=== PATIENT | male | born 1995 | race Two or more races ===

== ENCOUNTER 2019-06-15 13:18 | Inpatient (IN) | payer MEDICAID ==
[~2019-06-15] VITALS: Ht 170.2 cm; Wt 106.1 kg
[~2019-06-15 13:18] MED LIST: ARIP2 PO; LORA-1000 PO; SERT50TA12 PO
[2019-06-16 14:32] VITALS: BP 111/73
[2019-06-16] MEDS ORDERED: HALOPERIDOL 5 MG TABLET PO PRN (14:45)
[2019-06-16 16:11] VITALS: BP 130/69
[2019-06-16] MEDS: LORazepam 2 MG TABLET PO PRN (17:39)
[2019-06-16] MEDS ORDERED: DOCUSATE SODIUM 100 MG CAPSULE PO PRN (18:00)
[2019-06-16] MEDS ORDERED: ONDANSETRON HCL 4 MG TABLET PO PRN (18:00)
[2019-06-16] MEDS ORDERED: MAGNESIUM HYDROXIDE SUSPENSION 30 ML UDCUP PO PRN (18:00)
[2019-06-16] MEDS ORDERED: NICOTINE 14 MG/24 HOUR PATCH TD PRN (18:00)
[2019-06-16] MEDS ORDERED: MAG HYDROX/AL HYDROX/SIMETH ES 30 ML SUSPENSION UDCUP PO PRN (18:00)
[2019-06-16] MEDS ORDERED: ALBUTEROL SULFATE HFA 90 MCG/PUFF 8 GM INHALER IH PRN (18:00)
[2019-06-16] MEDS ORDERED: CloNIDine HCL 0.1 MG TABLET PO PRN (18:00)
[2019-06-16] MEDS ORDERED: PETROLATUM,WHITE 28 GM JELLY TP PRN (18:00)
[2019-06-16] MEDS ORDERED: IBUPROFEN 400 MG TABLET PO PRN (18:00)
[2019-06-16] MEDS ORDERED: LOPERAMIDE HCL 2 MG CAPSULE PO PRN (18:00)
[2019-06-16] MEDS ORDERED: GuaiFENesin/D-METHORPHAN [SUGAR-FREE] 200-20MG/10 ML SYRUP UDCUP PO PRN (18:00)
[2019-06-16] MEDS ORDERED: ACETAMINOPHEN 325 MG TABLET PO PRN (18:00)
[2019-06-16] MEDS: ZOLPIDEM TARTRATE 10 MG TABLET PO PRN (21:10)
[2019-06-17 00:44] VITALS: BP 121/68
[2019-06-17 07:53] LABS: APPEARANCE,URINE TURBID (CLEAR); BILIRUBIN,URINE NEGATIVE (NEGATIVE); GLUCOSE, URINE (UA) NEGATIVE (NEGATIVE); KETONES,URINE NEGATIVE (NEGATIVE); LEUKOCYTE ESTERASE ,URINE NEGATIVE (NEGATIVE); NITRATE,URINE NEGATIVE (NEGATIVE); OCCULT BLOOD,URINE NEGATIVE (NEGATIVE); PH,URINE 7.5 (5.0-8.0); PROTEIN,URINE NEGATIVE (NEGATIVE); UROBILINOGEN,URINE 0.2 mg/dL (<=1.0)
[2019-06-17 07:55] LABS: BASOPHILS % (AUTO) 0.5 % (0.0-2.0); HEMATOCRIT 43.6 % (41-53); HEMOGLOBIN 14.8 g/dL (13.5-17.5); LYMPHOCYTES # (AUTO) 2.8 K/uL (1.0-4.8); LYMPHOCYTES % (AUTO) 28.9 % (22.0-44.0); MEAN CORPUSCULAR HEMOGLOBIN 28.6 pg (26.0-34.0); MEAN CORPUSCULAR HGB CONC 33.9 G/dL (31.0-37.0); MEAN CORPUSCULAR VOLUME 84 fL (80-100); MONOCYTES # (AUTO) 0.7 K/uL (0.1-1.0); MONOCYTES % (AUTO) 6.8 % (2.0-9.0); NEUTROPHILS # (AUTO) 6.1 K/uL (1.8-7.7); NEUTROPHILS % (AUTO) 62.8 % (40.0-70.0); PLATELET COUNT (AUTO) 287 K/uL (150-450); RED BLOOD CELL COUNT(AUTO) 5.17 MIL/uL (4.50-5.90); RED CELL DISTRIBUTION WIDTH 13.9 % (11.5-14.5)
[2019-06-17 07:59] LABS: AMPHET/METH SCREEN,URINE NEGATIVE (NEGATIVE); BARBITURATE SCREEN, URINE NEGATIVE (NEGATIVE); BENZODIAZEPINES SCREEN,URINE NEGATIVE (NEGATIVE); CANNABINOID SCREEN,URINE NEGATIVE (NEGATIVE); COCAINE SCREEN,URINE NEGATIVE (NEGATIVE); METHADONE SCREEN, URINE NEGATIVE (NEGATIVE); OPIATE SCREEN,URINE NEGATIVE (NEGATIVE)
[2019-06-17 07:59] LABS: HEMOGLOBIN A1C 5.4 % (4.5-6.2)
[2019-06-17 08:00] VITALS: BP 136/84
[2019-06-17 08:00] LABS: PHENCYCLIDINE SCREEN,URINE NEGATIVE (NEGATIVE)
[2019-06-17 08:04] VITALS: BP 140/74
[2019-06-17 08:18] LABS: ALANINE AMINOTRANSFERASE 110 U/L (12-78); ALBUMIN 3.8 g/dL (3.4-5.0); ALKALINE PHOSPHATASE 86 U/L (46-116); ANION GAP 9 mmol/L (8-16); ASPARTATE AMINOTRANSFERASE 34 U/L (15-37); BILIRUBIN,TOTAL 0.4 mg/dL (0.1-1.0); CALCIUM, TOTAL 8.6 mg/dL (8.8-10.5); CARBON DIOXIDE 23 mmol/L (22-29); CHLORIDE 108 mmol/L (98-107); CHOLESTEROL 175 mg/dL (131-200); CREATININE 0.83 mg/dL (0.60-1.30); GLOMERULAR FILTR. RATE CALC > 60 mL/min (>60); GLUCOSE,RANDOM 88 mg/dL (70-110); HDL CHOLESTEROL 35 mg/dL (40-60); LDL CHOL (CALC.) 119 mg/dL (0-130); POTASSIUM 3.7 mmol/L (3.5-5.1); SODIUM SERUM 140 mmol/L (136-145); THYROID STIMULATING HORMONE 2.01 uIU/mL (0.36-3.74); TOTAL PROTEIN, SERUM 7.7 g/dL (6.4-8.2); TRIGLYCERIDES 107 mg/dL (15-150)
[2019-06-17 08:29] LABS: UREA NITROGEN, BLOOD 10 mg/dL (7-18)
[2019-06-17] MEDS ORDERED: ACETAMINOPHEN 325 MG TABLET PO PRN (08:45)
[2019-06-17] MEDS ORDERED: DOCUSATE SODIUM 100 MG CAPSULE PO PRN (08:45)
[2019-06-17] MEDS ORDERED: ALBUTEROL SULFATE HFA 90 MCG/PUFF 8 GM INHALER IH PRN (08:45)
[2019-06-17] MEDS ORDERED: NICOTINE 14 MG/24 HOUR PATCH TD PRN (08:45)
[2019-06-17] MEDS ORDERED: MAG HYDROX/AL HYDROX/SIMETH ES 30 ML SUSPENSION UDCUP PO PRN (08:45)
[2019-06-17] MEDS ORDERED: GuaiFENesin/D-METHORPHAN [SUGAR-FREE] 200-20MG/10 ML SYRUP UDCUP PO PRN (08:45)
[2019-06-17] MEDS ORDERED: IBUPROFEN 400 MG TABLET PO PRN (08:45)
[2019-06-17] MEDS ORDERED: ONDANSETRON HCL 4 MG TABLET PO PRN (08:45)
[2019-06-17] MEDS ORDERED: CloNIDine HCL 0.1 MG TABLET PO PRN (08:45)
[2019-06-17] MEDS ORDERED: LOPERAMIDE HCL 2 MG CAPSULE PO PRN (08:45)
[2019-06-17] MEDS ORDERED: MAGNESIUM HYDROXIDE SUSPENSION 30 ML UDCUP PO PRN (08:45)
[2019-06-17] MEDS ORDERED: PETROLATUM,WHITE 28 GM JELLY TP PRN (08:45)
[2019-06-17 09:09] LABS: BACTERIA,URINE None Seen /HPF (None Seen); RBC,URINE None Seen /HPF (0-2); SQUAMOUS EPITHELIAL CELL,UR Rare /LPF (None Seen); WBC,URINE None Seen /HPF (0-5)
[2019-06-17 09:10] LABS: AMORPHOUS SEDIMENT,UR Many /LPF (None Seen)
[2019-06-17] MEDS: ARIPiprazole 5 MG TABLET PO SCH (12:21)
[2019-06-17] MEDS: SERTRALINE HCL 50 MG TABLET PO SCH (12:21)
[2019-06-17 16:04] VITALS: BP 121/78
[2019-06-17] MEDS: ZOLPIDEM TARTRATE 10 MG TABLET PO PRN (20:44)
[2019-06-18 00:04] VITALS: BP 133/76
[2019-06-18] MEDS: SERTRALINE HCL 50 MG TABLET PO SCH (08:20)
[2019-06-18 08:23] VITALS: BP 140/78
[2019-06-18] MEDS: ARIPiprazole 5 MG TABLET PO SCH (10:01)
[2019-06-18 16:10] VITALS: BP 135/88
[2019-06-18] MEDS: ZOLPIDEM TARTRATE 10 MG TABLET PO PRN (20:45)
[2019-06-19 05:53] VITALS: BP 126/82
[2019-06-19 08:08] VITALS: BP 139/82
[2019-06-19] MEDS: PALIPERIDONE 3 MG ER TABLET PO SCH (08:15)
[2019-06-19] MEDS: SERTRALINE HCL 50 MG TABLET PO SCH (08:16)
[2019-06-19 16:37] VITALS: BP 128/76
[2019-06-20 00:33] VITALS: BP 132/84
[2019-06-20] MEDS: SERTRALINE HCL 50 MG TABLET PO SCH (08:09)
[2019-06-20] MEDS: PALIPERIDONE 3 MG ER TABLET PO SCH (08:09)
[2019-06-20 08:16] VITALS: BP 141/70
[2019-06-20 16:00] VITALS: BP 117/75
[2019-06-20] MEDS: ZOLPIDEM TARTRATE 10 MG TABLET PO PRN (21:22)
[2019-06-21 02:10] VITALS: BP 140/86
[2019-06-21 08:15] VITALS: BP 114/63
[2019-06-21] MEDS: SERTRALINE HCL 50 MG TABLET PO SCH (08:20)
[2019-06-21] MEDS: PALIPERIDONE 3 MG ER TABLET PO SCH (08:20)
[2019-06-21 16:02] VITALS: BP 131/71
[2019-06-22 00:53] VITALS: BP 139/80
[2019-06-22 05:21] VITALS: BP 129/76
[2019-06-22] MEDS: LORazepam 2 MG TABLET PO PRN (05:25)
[2019-06-22] MEDS: PALIPERIDONE 3 MG ER TABLET PO SCH (08:04)
[2019-06-22] MEDS: SERTRALINE HCL 50 MG TABLET PO SCH (08:04)
[2019-06-22 08:08] VITALS: BP 130/76
[2019-06-22] MEDS ORDERED: SERT50TA12 PO (09:01)
[2019-06-22] MEDS ORDERED: PALI3 PO (09:01)
== END 2019-06-22 12:40 | disposition home or self-care (01) | DRG 750 ==
LOC: B2S 06-16 15:30
PROVIDERS: ADMIT Psychiatry & Neurology Psychiatry; ATTEND Psychiatry & Neurology Psychiatry
DX: F20.9 Schizophrenia, unspecified (principal); E83.51 Hypocalcemia; K59.00 Constipation, unspecified; E66.9 Obesity, unspecified; Z68.36 Body mass index [BMI] 36.0-36.9, adult; R74.0 Nonspecific elevation of levels of transaminase and lactic acid dehydrogenase [LDH]; F32.9 Major depressive disorder, single episode, unspecified; F41.9 Anxiety disorder, unspecified
CPT/HCPCS: 80307; 83036; 84443